=== PATIENT | female | born 1960 | race Caucasian/White ===

== ENCOUNTER 2016-09-15 05:42 | Day surgery (SDC) | payer OTHER ==
[~2016-09-15] VITALS: Ht 157.5 cm; Wt 63.0 kg
[2016-09-15] VITALS (9 sets, daily range): BP systolic 104–125; BP diastolic 72–81; PULSE 71–80; RESP 10–21; Ht 157.5 cm; Wt 63.0 kg
[2016-09-15] MEDS ORDERED: LIDOCAINE 2% (SDV) 5 ML INJ ONE (06:42)
[2016-09-15] MEDS ORDERED: ROCURONIUM 50 MG INJ ONE (06:42)
[2016-09-15] MEDS ORDERED: MIDAZOLAM 1 MG/ML 2 ML INJ ONE (06:42)
[2016-09-15] MEDS ORDERED: GLYCOPYRROLATE 0.4 MG INJ ONE (06:42)
[2016-09-15] MEDS ORDERED: NEOSTIGMINE 3 MG/3 ML SYRINGE ONE (06:42)
[2016-09-15] MEDS ORDERED: FENTAnyl 50 MCG/ML VIAL ONE (06:42)
[2016-09-15] MEDS ORDERED: PROPOFOL 20 ML ONE (06:42)
[2016-09-15] MEDS ORDERED: SUCCINYLCHOLINE CHLORIDE 100 MG/5 ML SYG IV ONE (06:43)
[2016-09-15] MEDS ORDERED: ONDANSETRON 4 MG INJ ONE (06:43)
[2016-09-15] MEDS ORDERED: DEXAMETHASONE 4 MG/ML 1 ML INJ ONE ×2 (06:43→07:11)
[2016-09-15] MEDS ORDERED: MEPERIDINE 25 MG INJ IV PRN (07:00)
[2016-09-15] MEDS ORDERED: MIDAZOLAM 1 MG/ML 2 ML INJ IV PRN (07:00)
[2016-09-15] MEDS ORDERED: DIPHENHYDRAMINE 50 MG INJ IV PRN (07:00)
[2016-09-15] MEDS ORDERED: OXYCODONE/ACETAMINOPHEN (5/325) TAB PO PRN ×2 (07:00)
[2016-09-15] MEDS ORDERED: HYDROmorphONE (0.2 MG/ML) 10ML SYG IV PRN ×3 (07:00)
[2016-09-15] MEDS ORDERED: hydrALAzine 20 MG INJ IV PRN (07:00)
[2016-09-15] MEDS ORDERED: morphine (1 MG/ML) 10ML SYRINGE IV PRN ×3 (07:00)
[2016-09-15] MEDS ORDERED: EPHEDrine SULFATE 50 MG/5 ML SYG IV PRN (07:00)
[2016-09-15] MEDS ORDERED: ATROPINE 1 MG/10 ML SYRINGE IV PRN (07:00)
[2016-09-15] MEDS ORDERED: FENTAnyl 50 MCG/ML VIAL IV PRN ×2 (07:00)
[2016-09-15] MEDS ORDERED: ONDANSETRON 4 MG INJ IV PRN (07:00)
[2016-09-15] MEDS ORDERED: LABETALOL HCL 20MG INJ IV PRN (07:00)
[2016-09-15] MEDS ORDERED: BUPIVACAINE 0.5% (SDV) 30 ML INJ ONE (07:11)
[2016-09-15] MEDS ORDERED: POLYMYXIN/BACITRACIN 1L IRRIG ONE (07:11)
[2016-09-15] MEDS ORDERED: LIDOCAINE 0.5% (MDV) 50 ML INJ ONE (07:11)
[2016-09-15] MEDS ORDERED: CLINDAMYCIN 900 MG/50 ML D5W IVPB IVPB ONE (08:00)
[2016-09-15] MEDS ORDERED: SEVOFLURANE 15 MIN ONE (08:00)
--- NOTE | 2016-09-15 08:30 | HPN ---
Date/Time of Note Date/Time of Note DATE: 09/15/16 TIME: 08:30 Interval H&P Admission Note Pt. seen H&P reviewed: No system changes ANA LUISA JOSEPH DPM Sep 15, 2016 08:30
[2016-09-15] MEDS ORDERED: KETOROLAC 30 MG INJ ONE (09:15)
--- NOTE | 2016-09-15 10:56 | OPR ---
DATE OF OPERATION: 09/15/2016 PREOPERATIVE DIAGNOSIS: Painful bunion with hallux valgus, right foot. POSTOPERATIVE DIAGNOSIS: Painful bunion with hallux valgus, right foot. PROCEDURE PERFORMED: Bunionectomy with distal head osteotomy, right first metatarsal. SURGEON: Trice Evans DPM ANESTHESIOLOGIST: Jason Dietrich MD ANESTHESIA: General. DESCRIPTION OF PROCEDURE: The patient was brought into the operating room, placed on the table in a secure supine position. Cardiac monitoring and general anesthesia were utilized for this case. Pr eoperatively, a total of 20 mL of 0.5% Marcaine plain mixed with 2% lidocaine plain were infiltrated into the right foot in the form of a Petersen block. Upon achieving anesthesia, the foot and leg were prepped and draped in the usual sterile manner and the ankle pneumatic tourniquet was inflated to 25 0 mmHg. Procedure #1 was then performed, bunionectomy with distal head osteotomy, right first metatarsal. A 4 cm dorsal medial incision was performed along the metatarsophalangeal joint. The incision was ce ntered at the metatarsophalangeal joint. The incision was then deepened. All superficial bleeders were cauterized and bovied as necessary. The capsulotomy was then identified and a linear capsuloto my was then performed. The capsule was reflected dorsally and plantarly exposing the hypertrophic m edial eminence. The hypertrophic medial eminence was transected with a power sagittal saw. The cap ital fragment was translocated laterally 3 mm and fixated with a 3.0 mm x 18 mm cannulated Stanley s crew. Good opposition of the osteotomy bone edges was noted. No gapping or separation of the osteo dino was seen intraoperatively. The area was copiously irrigated with sterile saline mixed with fabricio itracin solution. No sharp edges were left behind and all sharp edges were smoothed with a power ra sp. Next, the capsule was closed with 2-0 Vicryl simple interrupted sutures, subcutaneous tissue was monica sed with 4-0 Vicryl simple interrupted sutures and skin edges were reapproximated with a running 3-0 Prolene subcuticular stitch. The dressing consisted of tincture of benzoin, 1/4-inch Steri-Strips, 3 x 3 gauze, Xeroform gauze, 4-inch Kerlix roll and 2-inch Coban into a semi-compressive dressing. The ankle pneumatic tourniquet was deflated and immediate hyperemia was noted to all digits of the right foot upon deflating the ankle tourniquet. No intraoperative complications were encountered. The patient tolerated the above procedure well and left the OR with vital signs stable and satisfac tory. The patient will follow up 1 week postop. Dictated By: TRICE BURKS/PELON Conf#: [id number] DID#: [id number]
== END 2016-09-15 11:30 | disposition home or self-care (01) ==
LOC: SDS 05:42
PROVIDERS: ATTEND Podiatrist Primary Podiatric Medicine
DX: M20.11 Hallux valgus (acquired), right foot (principal); M21.611 Bunion of right foot; Z88.0 Allergy status to penicillin
CPT/HCPCS: 28296; J0330; J1100; J1170; J1885; J2250; J2405; J2710; J3010; L3260; Z7512; Z7610